=== PATIENT | female | born 1975 | race Caucasian/White ===

== ENCOUNTER 2017-05-23 14:30 | Outpatient (CLI) | payer OTHER | END 2017-05-23 14:31 | disposition home or self-care (01) | LOC: BICMAMMO 14:30 | PROVIDERS: ATTEND Student in an Organized Health Care Education/Training Program | DX: N63.20 Unspecified lump in the left breast, unspecified quadrant (principal) ==

== ENCOUNTER 2020-12-13 07:52 | Outpatient (CLI) | payer BC | END 2020-12-13 07:53 | disposition home or self-care (01) | LOC: BICULT 07:52 | PROVIDERS: ATTEND Radiology Radiation Oncology | DX: R22.32 Localized swelling, mass and lump, left upper limb (principal); C50.912 Malignant neoplasm of unspecified site of left female breast; Z90.12 Acquired absence of left breast and nipple | CPT/HCPCS: 76999 ==